=== PATIENT | female | born 1990 | race Caucasian/White ===

== ENCOUNTER 2016-12-31 23:56 | Emergency (ER) | payer SELFPAY ==
[~2016-12-31] VITALS: Ht 165.1 cm; Wt 49.7 kg
[2017-01-01 01:17] LABS: HEMATOCRIT 38.6 % (34.6-47.8); HEMOGLOBIN 12.9 g/dL (11.7-16.4); WHITE BLOOD COUNT 7.7 x10^3/uL (3.4-10)
[2017-01-01 01:29] LABS: ASPARTATE AMINO TRANSFERASE 13 U/L (15-37); BLOOD UREA NITROGEN 16 mg/dL (7-18)
[2017-01-01 03:25] VITALS: BP 120/65
== END 2017-01-01 03:28 | disposition home or self-care (01) ==
LOC: ED 23:59
DX: O20.0 Threatened abortion (principal); Z3A.01 Less than 8 weeks gestation of pregnancy
CPT/HCPCS: 36415; 76801; 80053; 84702; 85025; 86901; 99285

== ENCOUNTER 2017-01-02 07:24 | Emergency (ER) | payer SELFPAY ==
[~2017-01-02] VITALS: Ht 165.1 cm; Wt 48.3 kg
[2017-01-02] MEDS ORDERED: HYDROcodone/APAP 5/325 TABLET ONE (08:27)
[2017-01-02] MEDS ORDERED: HYDROcodone/APAP 5/325 TABLET PO ONE (08:30)
[2017-01-02 08:31] LABS: HEMATOCRIT 40.3 % (34.6-47.8); HEMOGLOBIN 13.5 g/dL (11.7-16.4); WHITE BLOOD COUNT 7.9 x10^3/uL (3.4-10)
[2017-01-02 08:49] LABS: BLOOD UREA NITROGEN 18 mg/dL (7-18)
[2017-01-02] MEDS ORDERED: ONDANSETRON ODT 8 MG ONE (09:36)
[2017-01-02] MEDS ORDERED: ONDANSETRON ODT 8 MG PO ONE (10:00)
[2017-01-02 10:37] VITALS: BP 92/51
[2017-01-02] MEDS ORDERED: OMNIPAQUE 350 MG/ML, 100ML BOTTLE ONE (10:59)
== END 2017-01-02 12:03 | disposition home or self-care (01) ==
LOC: ED 07:42
DX: R10.31 Right lower quadrant pain (principal)
CPT/HCPCS: 36415; 74177; 80048; 82040; 84702; 85025; 86901; 99285; Q0162; Q9967

== ENCOUNTER 2017-05-09 17:32 | Emergency (ER) | payer MEDICAID, OTHER ==
[~2017-05-09] VITALS: Ht 165.1 cm; Wt 50.0 kg
[2017-05-09] MEDS ORDERED: FAMOTIDINE 20 MG TABLET PO ONE (18:00)
[2017-05-09] MEDS ORDERED: FAMOTIDINE 20 MG TABLET ONE (18:04)
[2017-05-09 18:36] VITALS: BP 108/66
== END 2017-05-09 18:38 | disposition home or self-care (01) ==
LOC: ED 18:30
DX: L50.9 Urticaria, unspecified (principal)
CPT/HCPCS: 99284; J7512; Q0177